=== PATIENT | male | born 1990 | race African-American/Black ===

== ENCOUNTER 2020-09-28 19:18 | Emergency (ER) | payer SELFPAY ==
[2020-09-29 13:26] LABS: SARS-CoV-2 PCR by NAA DETECTED (NotDetected)
== END 2020-09-29 01:12 | disposition home or self-care (01) ==
LOC: CSHERS 19:18
DX: U07.1 COVID-19 (principal)
CPT/HCPCS: 99283; U0003; U0005

== ENCOUNTER 2021-07-25 06:55 | Emergency (ER) | payer SELFPAY | END 2021-07-25 08:02 | disposition home or self-care (01) | LOC: CSHERS 06:55 | DX: S70.361A Insect bite (nonvenomous), right thigh, initial encounter (principal); L03.115 Cellulitis of right lower limb; W57.XXXA Bitten or stung by nonvenomous insect and other nonvenomous arthropods, initial encounter | CPT/HCPCS: 99282 ==

== ENCOUNTER 2023-02-07 09:06 | Emergency (ER) | payer BC, SELFPAY ==
[2023-02-07 10:10] LABS: SARS-CoV-2 NAA Rapid Test Not Detected (NotDetected)
== END 2023-02-07 10:47 | disposition home or self-care (01) ==
LOC: CSHERS 09:06
DX: J06.9 Acute upper respiratory infection, unspecified (principal)
CPT/HCPCS: 99284